=== PATIENT | female | born 1955 | race Caucasian/White ===

== ENCOUNTER 2017-12-26 08:10 | Outpatient (CLI) | payer BC | END 2017-12-26 08:11 | disposition home or self-care (01) | LOC: BICULT 08:10 | PROVIDERS: ATTEND Urology | DX: N39.41 Urge incontinence (principal) | CPT/HCPCS: 76770 ==

== ENCOUNTER 2018-01-14 14:16 | Outpatient (CLI) | payer BC ==
[2018-01-14 15:54] LABS: Hemoglobin 12.9 g/dL (12.0-16.0); Mean Corpuscular HGB CONC 33.6 g/dL (32.0-36.0); Mean Corpuscular Hemoglobin 32.5 pg (27.0-31.0); Mean Corpuscular Volume 96.8 fl (81.0-99.0); Mean Platelet Volume 8.1 fL (7.4-10.4); Platelet Count 248 thou/uL (130-400); RBC Distribution Width 11.6 % (11.5-14.5); Red Blood Cell (RBC) Count 3.96 mill/uL (4.20-5.40)
[2018-01-14 15:59] LABS: Bilirubin Negative (Negative); Blood, Urine Negative (Negative); Clarity CLOUDY (Clear); Glucose, Urine (Dipstick) Negative (Negative); Leukocyte Negative (Negative); Nitrite Negative (Negative); Protein, Urine (Dipstick) Negative (Neg-Trace); Specific Gravity, Urine 1.033 (1.002-1.036); Urobilinogen 0.2 mg/dL (0.2-1.0); pH, Urine 5.5 (5.0-9.0)
[2018-01-14 16:00] LABS: INR-International Normal Ratio 0.9; PTT 27.9 SEC (22.9-36.1); Prothrombin Time 12.6 SEC (12.0-14.7)
[2018-01-14 16:01] LABS: Bacteria/HPF None Seen HPF (None Seen); Hyaline Casts/LPF 0-3 HYALINE CAST LPF (0-3 Hyaline); Pathc Cast-AUWi Flag 0.67 (0-2.49); RBC/HPF 0-3 HPF (0-3); Squamous Epithelial 0-3 HPF (0-3); WBC/HPF 0-3 HPF (0-3)
[2018-01-14 16:13] LABS: Crystals/HPF 4+ CA OXALATE HPF (Negative)
[2018-01-14 16:15] LABS: Anion Gap 15 mmol/L (10-20); BUN (Urea Nitrogen) 24 mg/dL (9.8-20.1); Calc. Creatinine Clearance 0 mL/min (70-130); Carbon Dioxide 26 mmol/L (23-31); Chloride 105 mmol/L (98-107); Estimated GFR-MDRD Greater than 90; Glucose 98 mg/dL (80-115); Potassium 4.1 mmol/L (3.5-5.1); Sodium 142 mmol/L (136-145)
--- NOTE | 2018-01-22 19:50 | EKG ---
Test Reason : Blood Pressure : / mmHG Vent. Rate : 076 BPM Atrial Rate : 076 BPM P-R Int : 156 ms QRS Dur : 066 ms QT Int : 374 ms P-R-T Axes : 085 086 073 degrees QTc Int : 420 ms Normal sinus rhythm Low voltage QRS Septal infarct , age undetermined Abnormal ECG When compared with ECG of 22-NOV-2014 17:03, No significant change was found Confirmed by REBEL EARLY (2) on 01/22/2018 7:50:02 PM Referred By: HALIE Confirmed By:REBEL EARLY
== END 2018-01-14 14:17 | disposition home or self-care (01) ==
LOC: LABBT 14:16
PROVIDERS: ATTEND Urology
DX: Z01.818 Encounter for other preprocedural examination (principal); G35 Multiple sclerosis; N31.9 Neuromuscular dysfunction of bladder, unspecified
CPT/HCPCS: 80048; 81001; 85027; 85610; 85730; 93005; 93010

== ENCOUNTER 2018-01-30 07:25 | Day surgery (SDC) | payer BC ==
[2018-01-14 14:32] VITALS: BMI 18.9
[2018-01-30] MEDS ORDERED: Levofloxacin 500 mg/D5W 100 ml Premix Bag ONE (08:41)
[2018-01-30] MEDS ORDERED: Fentanyl 100 MCG/2 ML VIAL ONE ×2 (10:19)
[2018-01-30] MEDS ORDERED: Phenazopyridine HCl 97.5 MG TABLET ONE (11:29)
--- NOTE | 2018-01-30 13:54 | OP ---
DATE OF PROCEDURE: 01/30/2018 Dr. Nicole [place]. PREOPERATIVE DIAGNOSES: 1. A 62-year-old female with multiple sclerosis, refractory urge incontinence with medical therapy. 2. 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 POSTOPERATIVE DIAGNOSES: 1. A 62-year-old female with multiple sclerosis, refractory urge incontinence with medical therapy. 2. 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 PROCEDURE: Cystoscopy, intravesical Botox injection 100 International Units. SURGEON: Dr. Madeleine Castaneda. ANESTHESIA: LMA. COMPLICATIONS: None apparent. DISPOSITION: To recovery room in stable condition. INDICATIONS FOR THE PROCEDURE AND HISTORY: Ms. Singh is a pleasant 62-year- old female, , with history of multiple sclerosis, followed by an neurologist in [place]. She has a history of refractory urge incontinence, 1 pad per day. She was previously followed by Dr. Steele and has been on multiple anticholinergic medical therapy including VESIcare 5 and 10 mg, Myrbetriq, Toviaz, and Levsin. She is unable to tolerate Myrbetriq due to lower extremity swelling. Due to medical refractory urge incontinence with history of MS, she desires to proceed with Botox. I discussed with patient regarding risks and complications including, but not limited to, bleeding, pain, infection, recurrent UTI, inability for incomplete void requiring clean intermittent catheterization versus indwelling urethral Diaz catheter, possible systemic side effects, exacerbation of muscle weakness, anaphylaxis reviewed. She has undergone workup by a neurologist, who agreed regarding treatment options for Botox and she desires to proceed. As she has significant small capacity bladder , she desired to proceed with first injection under anesthesia. Risks and complications of the procedure are discussed as above. DESCRIPTION OF THE PROCEDURE: After an informed consent is signed, the patient is taken to the operating room, placed in a dorsal lithotomy position with the genital prepped and draped in the usual surgical sterile fashion. Anesthesia was provided. She was provided preoperative antibiotics. A rigid 22-Thai cystoscope was utilized, which demonstrated normal bladder mucosa. The ureteral orifices were identified in normal anatomical location. There was clear influx of urine bilaterally. There was no evidence of bladder tumor or stones. The Botox injection needle was set at 4 mm and 20 injections of 0.5cc placed systematically throughout the bladder to avoid the trigone/ureteral orifices. No significant oozing of concern was noted. The bladder was completely emptied and she tolerated the procedure well. She will follow up with me in 6-week interval to reassess her clinical symptoms. She is discharged with ciprofloxacin for another 1-2 days. We will monitor her postop , check a postvoid residual before discharge. ACACIA
== END 2018-01-30 12:50 | disposition home or self-care (01) ==
LOC: SDC 07:25
PROVIDERS: ATTEND Urology
PROC: 3E0K8GC Introduction of Other Therapeutic Substance into Genitourinary Tract, Via Natural or Artificial Opening Endoscopic (ICD-10-PCS; principal; 2018-01-30)
DX: N39.41 Urge incontinence (principal); N31.9 Neuromuscular dysfunction of bladder, unspecified; G35 Multiple sclerosis; N32.89 Other specified disorders of bladder; K59.00 Constipation, unspecified; Z79.899 Other long term (current) drug therapy; Z88.8 Allergy status to other drugs, medicaments and biological substances
CPT/HCPCS: J0585; J1956; J3010

== ENCOUNTER 2018-05-02 11:44 | Outpatient (CLI) | payer BC ==
[2018-05-02 14:04] LABS: Hemoglobin 12.8 g/dL (12.0-16.0); Mean Corpuscular Hemoglobin 33.3 pg (27.0-31.0); Mean Platelet Volume 8.4 fL (7.4-10.4); Platelet Count 250 thou/uL (130-400); RBC Distribution Width 11.3 % (11.5-14.5); Red Blood Cell (RBC) Count 3.85 mill/uL (4.20-5.40)
[2018-05-02 14:13] LABS: INR-International Normal Ratio 0.9; PTT 28.2 SEC (22.9-36.1); Prothrombin Time 12.6 SEC (12.0-14.7)
[2018-05-02 14:23] LABS: Anion Gap 11 mmol/L (10-20); BUN (Urea Nitrogen) 19 mg/dL (9.8-20.1); Calc. Creatinine Clearance 0 mL/min (70-130); Calcium 9.5 mg/dL (7.8-10.44); Carbon Dioxide 29 mmol/L (23-31); Chloride 102 mmol/L (98-107); Estimated GFR-MDRD Greater than 90; Glucose 77 mg/dL (80-115); Potassium 3.9 mmol/L (3.5-5.1); Sodium 138 mmol/L (136-145)
[2018-05-02 14:36] LABS: Bilirubin Negative (Negative); Blood, Urine Negative (Negative); Clarity CLEAR (Clear); Glucose, Urine (Dipstick) Negative (Negative); Leukocyte Small (Negative); Nitrite Negative (Negative); Protein, Urine (Dipstick) Negative (Neg-Trace); Specific Gravity, Urine 1.017 (1.002-1.036); Urobilinogen 0.2 mg/dL (0.2-1.0)
[2018-05-02 15:06] LABS: Bacteria/HPF None Seen HPF (None Seen); Hyaline Casts/LPF 0-3 HYALINE CAST LPF (0-3 Hyaline); Pathc Cast-AUWi Flag 0.29 (0-2.49); RBC/HPF 0-3 HPF (0-3); Squamous Epithelial 0-3 HPF (0-3); WBC/HPF 0-3 HPF (0-3)
== END 2018-05-02 11:45 | disposition home or self-care (01) ==
LOC: LABBT 11:44
PROVIDERS: ATTEND Urology
DX: Z01.818 Encounter for other preprocedural examination (principal); N31.9 Neuromuscular dysfunction of bladder, unspecified
CPT/HCPCS: 80048; 81001; 85027; 85610; 85730; 87077; 87086; 93005; 93010

== ENCOUNTER 2018-05-15 05:53 | Day surgery (SDC) | payer BC ==
[2018-05-02 12:01] VITALS: BMI 18.6
[2018-05-15] MEDS ORDERED: Levofloxacin 500 mg/D5W 100 ml Premix Bag ONE (06:07)
[2018-05-15] MEDS ORDERED: Phenazopyridine HCl 97.5 MG TABLET ONE (07:59)
--- NOTE | 2018-05-15 08:11 | OP ---
DATE OF SERVICE: 05/15/2018 PREOPERATIVE DIAGNOSES: A 62-year-old female with history of multiple sclerosis, urge incontinence s econdary to neurogenic bladder, detrusor hyperreflexia. POSTOPERATIVE DIAGNOSES: A 62-year-old female with history of multiple sclerosis, urge incontinence secondary to neurogenic bladder, detrusor hyperreflexia. PROCEDURE: Cystoscopy, intravesical Botox injection 100 international units. SURGEON: Madeleine Castaneda D.O. ANESTHESIA: LMA. COMPLICATIONS: None apparent. DISPOSITION: To recovery room in stable condition. INDICATIONS FOR THE PROCEDURE AND HISTORY: Ms. Singh is a 62-year-old female with history of multip le sclerosis with severe urge incontinence. She has had difficulty tolerating Myrbetriq due to lower extremity swelling, also has tried multiple anticholinergics with no significant improvement. She p reviously underwent Botox injection and had subjective improvement of her urge incontinence using 1 p ad per day. She presents today for repeat Botox injection. She has been fully informed regarding ri sks and complications and indications for the procedure and alternative options. DESCRIPTION OF THE PROCEDURE: After an informed consent is signed, the patient is taken to the opera tin room, placed in a dorsal lithotomy position with the genital area prepped and draped in the usua l surgical sterile fashion. Broad-spectrum antibiotics were provided. Bilateral Christina Chinchilla plac ed. A 21-[place] cystoscope was utilized for cystoscopy. There was mild resistance passing a 21 scop e, however, this was able to be passed with no trauma. Bladder was entered which demonstrated no marifer dence of bladder lesion, tumors, stones or trabeculation. We offset the Botox injection needle at 4 mm and we systematically injected 0.5 mL avoiding trigone for a total of 20 injections. Minimal oozi ng from the injection site was noted and she tolerated the procedure well. She will complete a cours e of antibiotics until tomorrow, she will see me in 6 week interval for a postvoid residual check.
[2018-05-15] MEDS ORDERED: PHENYLEPHRINE-NS 100 MCG/ML 10 ML SYRINGE ONE (14:33)
[2018-05-15] MEDS ORDERED: Ondansetron HCl/PF 4 MG/2 ML Vial ONE (14:33)
[2018-05-15] MEDS ORDERED: Dexamethasone 20 MG/5 ML VIAL ONE (14:33)
== END 2018-05-15 10:07 | disposition home or self-care (01) ==
LOC: SDC 05:53
PROVIDERS: ATTEND Urology
PROC: 3E0K8GC Introduction of Other Therapeutic Substance into Genitourinary Tract, Via Natural or Artificial Opening Endoscopic (ICD-10-PCS; principal; 2018-05-15)
DX: N31.9 Neuromuscular dysfunction of bladder, unspecified (principal); N39.41 Urge incontinence; K59.00 Constipation, unspecified; G35 Multiple sclerosis; Z88.8 Allergy status to other drugs, medicaments and biological substances; Z79.899 Other long term (current) drug therapy
CPT/HCPCS: J0585; J1100; J1956; J2405

== ENCOUNTER 2019-09-05 13:49 | Outpatient (CLI) | payer BC ==
[~2019-09-05 13:49] MED LIST: Gadobenate Dimeglumine 529 MG/1 ML (20ML VIAL) ONE
[2019-09-05 15:00] LABS: Estimated GFR-MDRD - POC Greater than 90
--- NOTE | 2019-09-05 16:32 | MRI ---
Exam: MRI thoracic spine with and without contrast. HISTORY: Patient has been diagnosed with multiple sclerosis in 1987 or . Evaluate for demyelinating plaques and assessed the overall degree of cord involvement COMPARISON: None FINDINGS: Appropriate T1 marrow signal intensity of the thoracic vertebra. Thoracic spine vertebral body height is maintained. There is no evidence of fracture. No significant STIR hyperintensity to suggest vertebral body edema or ligamentous injury. Postcontras t images do not demonstrate any abnormal enhancement of the thoracic vertebra. There is rightward curvature of the thoracic spine Mediastinum, lung parenchyma and solid organs are grossly unremarkable. There is a T2 hyperintensity in the liver, corresponding to a cyst which is demonstrated on CT from 12/17/2009 Throughout the thoracic spine, there is no significant central canal stenosis. Neural foramina are pa tent. Conus medullaris terminates at the mid L1 level. The thoracic cord has normal signal intensity. No cord expansion. There are multisegment areas of cor d malacia. There is no cord signal T2 hyperintensity. No evidence of enhancement. No MR evidence of a demyelinating plaque. IMPRESSION: 1. Rightward curvature of the thoracic spine. 2. No evidence of a myelinating plaque in the thoracic spine.. 3. Multisegmental areas of thoracic cord malacia. Transcribed Date/Time: 09/05/2019 4:35 PM
--- NOTE | 2019-09-05 17:03 | MRI ---
MRI Cervical Spine W WO Con History: Multiple sclerosis Comparison: Cervical spine 2015 Findings: Cerebral tonsils terminate at the level of the foramen magnum. No acute fracture. No paraspinal mass. No cervical adenopathy. There is multifocal patchy abnormal increased T2 signal throughout the cervical cord atrophy at the a t the C7/T1 level. Levels are as follows: C2/C3: Mild degenerative disc space height loss. Moderate uncinate process appear atrophied. Moderate facet arthropathy. Mild bilateral neural foraminal narrowing. C3/C4: Circumferential disc osteophyte complex. 2 mm anterolisthesis. Moderate to severe left and mod erate right hypertrophic facet arthropathy. Mild effacement of the ventral CSF space. Mild bilateral neural foraminal narrowing. C4/C5: Circumferential disc bulge. Large right lateral recess and subforaminal disc osteophyte comple x. Mild left and moderate right hypertrophic facet arthropathy. Moderate to severe right and mild left neural foraminal narrowing. C5/C6: Circumferential disc height loss with disc osteophyte complex greatest in the right subforamin al zone. Mild bilateral facet arthropathy. Mild effacement of ventral CSF space. No significant canal narrowing. Mild bilateral neural foraminal narrowing. Moderate bilateral neural foraminal narrowing. C6/C7: Circumferential disc bulge and associated osteophytes. Mild effacement of ventral CSF space wi th the spinal canal measuring 1 cm. No active demyelinating plaque. No abnormal focus of enhancement. Impression: 1. No evidence for active demyelination. 2. Extensive demyelinating plaque throughout the cervical cord with atrophy at the level of C7/T1. 3. Extensive spondylosis as described.
== END 2019-09-05 13:50 | disposition home or self-care (01) ==
LOC: BICMRI 13:49
PROVIDERS: ATTEND Psychiatry & Neurology Neurology
DX: G35 Multiple sclerosis (principal); M47.812 Spondylosis without myelopathy or radiculopathy, cervical region; M43.9 Deforming dorsopathy, unspecified; M83.8 Other adult osteomalacia
CPT/HCPCS: 72156; 72157; 82565; A9577

== ENCOUNTER 2019-09-10 15:20 | Outpatient (CLI) | payer BC ==
--- NOTE | 2019-09-10 16:52 | MRI ---
Exam: Brain MRI with and without contrast HISTORY: Multiple sclerosis COMPARISON: 04/25/2006 FINDINGS: Gradient echo sequence: No hemorrhage Calvarium: Appropriate T1 marrow signal intensity Midline brain parenchyma: Unremarkable Cerebrum:No parenchymal mass, mass effect or midline shift. Brain volume, slightly less than expected for patient's age. Redemonstration of multiple T2 and FLAIR white matter hyperintensities, perpendicular to the ventricular system. 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 There is no as sociated restricted diffusion or enhancement to suggest active demyelination. Ventricles: No evidence of hydrocephalus. Sinuses and mastoid air cells: Adequate aeration Diffusion: Central arterial flow is maintained. Absent restricted diffusion. Postcontrast images: No pathologic enhancement of the brain parenchyma. IMPRESSION: Stable white matter hyperintensities. No evidence of restricted diffusion or enhancement to suggest a ctive demyelination. Transcribed Date/Time: 09/10/2019 4:58 PM
== END 2019-09-10 15:21 | disposition home or self-care (01) ==
LOC: BICMRI 15:20
PROVIDERS: ATTEND Psychiatry & Neurology Neurology
DX: G35 Multiple sclerosis (principal); G93.89 Other specified disorders of brain
CPT/HCPCS: 70553; A9577

== ENCOUNTER 2020-10-15 12:19 | Emergency (ER) | payer BC ==
[2020-10-15] MEDS ORDERED: Boostrix 0.5 ML (Tdap) VIAL ONE (13:47)
[2020-10-15] MEDS ORDERED: Acetaminophen 500 MG TAB ONE (13:47)
--- NOTE | 2020-10-15 14:24 | CT ---
CT BRAIN WITHOUT CONTRAST: COMPARISON: 11/22/2014. HISTORY: Head injury. TECHNIQUE: Multiple contiguous axial images were obtained in a CT of the brain without contrast. FINDINGS: There are a few subtle scattered hypodensities in the subcortical and periventricular white matter, l ikely secondary to small-vessel ischemic disease. No large confluent infarction is seen. There is n o evidence of hydrocephalus, intracranial hemorrhage, or extraaxial fluid collection. There is soft tissue swelling in the right scalp near the vertex. The underlying calvarium is unrema rkable. There may be a small radiopaque foreign body within the soft tissues in this area of swellin g. This radiopaque foreign body was present on the prior CT. The visualized paranasal sinuses and m astoid air cells are well aerated. IMPRESSION: No evidence of acute intracranial abnormality. POS: EAA
--- NOTE | 2020-10-15 14:45 | CT ---
CT CERVICAL SPINE WITHOUT CONTRAST: HISTORY: Head trauma with neck pain. TECHNIQUE: Multiple contiguous axial images were obtained in a CT of the cervical spine without contrast. Sagit lucien and coronal reformats were performed. FINDINGS: Moderate degenerative changes are seen in the cervical spine. The vertebral bodies demonstrate niurka l height and alignment without acute fracture or subluxation. No prevertebral soft tissue swelling i s seen. The posterior facets are well aligned. Normal alignment of the skull base with the cervical spine is seen. IMPRESSION: Moderate degenerative changes of the cervical spine without acute osseous abnormality. POS: EAA
== END 2020-10-15 16:00 | disposition home or self-care (01) ==
LOC: ERS 12:19
DX: S06.0X0A Concussion without loss of consciousness, initial encounter (principal); S01.01XA Laceration without foreign body of scalp, initial encounter; Z23 Encounter for immunization; W01.10XA Fall on same level from slipping, tripping and stumbling with subsequent striking against unspecified object, initial encounter
CPT/HCPCS: 12002; 70450; 72125; 90471; 90715

== ENCOUNTER 2020-10-26 09:32 | Emergency (ER) | payer BC | END 2020-10-26 10:19 | disposition home or self-care (01) | LOC: ERS 09:32 | DX: S01.01XD Laceration without foreign body of scalp, subsequent encounter (principal); W01.198D Fall on same level from slipping, tripping and stumbling with subsequent striking against other object, subsequent encounter ==

== ENCOUNTER 2022-09-29 08:13 | Inpatient (IN) | payer BC ==
[2022-09-29 09:57] LABS: ALT (SGPT) 12 U/L (8-55); AST (SGOT) 17 U/L (5-34); Albumin 4.3 g/dL (3.4-4.8); Alkaline Phosphatase 75 U/L (40-110); Anion Gap 17 mmol/L (10-20); BUN (Urea Nitrogen) 19 mg/dL (9.8-20.1); Bilirubin, Total 1.5 mg/dL (0.2-1.2); Calc. Creatinine Clearance 0 mL/min (70-130); Calcium 9.5 mg/dL (7.8-10.44); Carbon Dioxide 24 mmol/L (23-31); Chloride 103 mmol/L (98-107); Estimated GFR 99; Glucose 98 mg/dL (80-115); Magnesium 1.7 mg/dL (1.6-2.6); Potassium 3.9 mmol/L (3.5-5.1); Protein, Total 7.3 g/dL (5.8-8.1); Sodium 140 mmol/L (136-145)
[2022-09-29 10:07] LABS: Hemoglobin 12.7 g/dL (12.0-16.0); Mean Corpuscular HGB CONC 32.5 g/dL (32.0-36.0); Mean Corpuscular Hemoglobin 34.4 pg (27.0-31.0); Mean Platelet Volume 8.4 fL (7.4-10.4); Platelet Count 271 10x3/uL (130-400); RBC Distribution Width 11.7 % (11.5-14.5); White Blood Cell (WBC) Count 13.1 10x3/uL (4.8-10.8)
[2022-09-29] MEDS ORDERED: methylPREDNISolone Sod Succ 1 GM in Sodium Chloride 0.9% 250 ML 250 ML IVPB SCH (11:00)
[2022-09-29 11:01] LABS: #Lymphocytes 1.2 thou/uL (1.20-3.40); #Neutrophils 10.9 thou/uL (1.40-6.50); %Basophils 0.1 % (0.0-1.0); %Eosinophils 0.2 % (0.0-10.0); %Lymphocytes 9.3 % (21.0-51.0); %Monocytes 7.3 % (0.0-10.0); %Neutrophils 83.2 % (42.0-75.0); MDiff Complete? YES; Microcytosis MODERATE=15-30 cells (100X) (0-5/hpf); Platelet Morphology Comment Appears Adequate
[2022-09-29 11:35] LABS: Bilirubin Negative (Negative); Blood, Urine Negative (Negative); Clarity Clear (Clear); Glucose, Urine (Dipstick) Normal (Negative); Ketone, Urine 100 mg/dL (Negative); Leukocyte Negative Leu/uL (Negative); Nitrite Negative (Negative); Protein, Urine (Dipstick) 10 mg/dL (Neg-Trace); Specific Gravity, Urine 1.027 (1.002-1.036); pH, Urine 6.5 (5.0-9.0)
[2022-09-29] MEDS ORDERED: Midazolam HCl 2 mg/2 ml Vial ONE (12:01)
[2022-09-29] MEDS ORDERED: Ondansetron ODT 4 MG TAB PO PRN (12:16)
[2022-09-29] MEDS ORDERED: Senokot S 8.6-50 MG TAB PO PRN (12:16)
[2022-09-29] MEDS ORDERED: Acetaminophen 325 MG TAB PO PRN (12:16)
[2022-09-29] MEDS ORDERED: Ondansetron PF 4 MG/2 ML Vial IVP PRN (12:16)
[2022-09-29] MEDS: Sodium Chloride 0.9% 1,000 ML IV SCH (14:51)
[2022-09-29] MEDS: Baclofen 10 MG TAB PO SCH ×2 (14:52→20:10)
[2022-09-29 19:39] LABS: SARS-CoV-2 NAA Rapid Test Not Detected (NotDetected)
[2022-09-30] MEDS: Sodium Chloride 0.9% 1,000 ML IV SCH (04:27)
[2022-09-30 07:23] LABS: #Lymphocytes 1.2 thou/uL (1.20-3.40); #Monocytes 1.1 thou/uL (0.11-0.59); #Neutrophils 13.8 thou/uL (1.40-6.50); %Basophils 0.1 % (0.0-1.0); %Eosinophils 0.2 % (0.0-10.0); %Lymphocytes 7.3 % (21.0-51.0); %Monocytes 6.9 % (0.0-10.0); %Neutrophils 85.5 % (42.0-75.0); Hemoglobin 11.1 g/dL (12.0-16.0); Mean Corpuscular HGB CONC 31.7 g/dL (32.0-36.0); Mean Corpuscular Hemoglobin 33.8 pg (27.0-31.0); Mean Platelet Volume 8.6 fL (7.4-10.4); Platelet Count 258 10x3/uL (130-400); RBC Distribution Width 11.9 % (11.5-14.5); Red Blood Cell (RBC) Count 3.28 mill/uL (4.20-5.40); White Blood Cell (WBC) Count 16.1 10x3/uL (4.8-10.8)
[2022-09-30 07:41] LABS: Anion Gap 11 mmol/L (10-20); BUN (Urea Nitrogen) 15 mg/dL (9.8-20.1); Calc. Creatinine Clearance 71 mL/min (70-130); Calcium 8.8 mg/dL (7.8-10.44); Carbon Dioxide 22 mmol/L (23-31); Chloride 111 mmol/L (98-107); Estimated GFR 101; Glucose 100 mg/dL (80-115); Potassium 4.2 mmol/L (3.5-5.1); Sodium 140 mmol/L (136-145)
[2022-09-30] MEDS ORDERED: methylPREDNISolone Sod Succ 40 MG VIAL IVP SCH (09:00)
[2022-09-30] MEDS ORDERED: FLU VACC QS2022-23(65YR UP)/PF 240 MCG/0.7 ML SYRINGE IM ONE (09:00)
[2022-09-30] MEDS: Baclofen 10 MG TAB PO SCH ×3 (09:50→20:36)
[2022-09-30] MEDS: methylPREDNISolone Sod Succ 1 GM in Sodium Chloride 0.9% 100 ML IVPB SCH (10:22)
[2022-09-30 15:45] VITALS: BMI 17.3
[2022-10-01 09:05] LABS: Chloride 108 mmol/L (98-107); Potassium 4.2 mmol/L (3.5-5.1)
[2022-10-01 09:06] LABS: Calcium 9.1 mg/dL (7.8-10.44); Glucose 95 mg/dL (80-115); Sodium 139 mmol/L (136-145)
[2022-10-01 09:08] LABS: Anion Gap 17 mmol/L (10-20); Carbon Dioxide 18 mmol/L (23-31)
[2022-10-01 09:10] LABS: Calc. Creatinine Clearance 69 mL/min (70-130); Estimated GFR 101
[2022-10-01 09:11] LABS: BUN (Urea Nitrogen) 20 mg/dL (9.8-20.1)
[2022-10-01] MEDS: Baclofen 10 MG TAB PO SCH ×3 (09:33→20:39)
[2022-10-01] MEDS: methylPREDNISolone Sod Succ 1 GM in Sodium Chloride 0.9% 100 ML IVPB SCH (09:33)
[2022-10-01 10:22] LABS: Hemoglobin 12.1 g/dL (12.0-16.0); Mean Corpuscular HGB CONC 33.1 g/dL (32.0-36.0); Mean Corpuscular Hemoglobin 35.1 pg (27.0-31.0); Mean Platelet Volume 8.9 fL (7.4-10.4); Platelet Count 265 10x3/uL (130-400); RBC Distribution Width 11.8 % (11.5-14.5); Red Blood Cell (RBC) Count 3.46 mill/uL (4.20-5.40); White Blood Cell (WBC) Count 17.9 10x3/uL (4.8-10.8)
[2022-10-01 11:36] LABS: Band 3 % (5-11); Lymphocytes 3 % (21-51); MDiff Complete? YES; Macrocytosis MODERATE=16-30 cells (100X) (0-5/hpf); Monocytes 6 % (0-10); Neutrophil 88 % (42-75); Platelet Morphology Comment Appears Adequate
[2022-10-01] MEDS ORDERED: Magnevist 469MG/ML 20 ML VIAL ONE (14:01)
[2022-10-01] MEDS: NALTREXONE 4 MG PO SCH (20:37)
[2022-10-02] MEDS: Baclofen 10 MG TAB PO SCH ×3 (09:13→20:19)
[2022-10-02] MEDS: methylPREDNISolone Sod Succ 1 GM in Sodium Chloride 0.9% 250 ML 250 ML IVPB SCH (10:40)
[2022-10-02] MEDS: NALTREXONE 4 MG PO SCH (20:19)
[2022-10-03] MEDS: methylPREDNISolone Sod Succ 1 GM in Sodium Chloride 0.9% 250 ML 250 ML IVPB SCH (08:58)
[2022-10-03] MEDS: Baclofen 10 MG TAB PO SCH ×3 (08:58→21:07)
[2022-10-03] MEDS: NALTREXONE 4 MG PO SCH (21:08)
[2022-10-04] MEDS: Baclofen 10 MG TAB PO SCH ×2 (08:51→14:40)
[2022-10-04] MEDS: methylPREDNISolone Sod Succ 1 GM in Sodium Chloride 0.9% 250 ML 250 ML IVPB SCH (08:51)
[2022-10-04 19:29] VITALS: BP 131/79; TEMP 98
== END 2022-10-04 20:02 | DRG 59 ==
LOC: ERS 08:13 → T4-A 11:59 → OBSVTOIN 09-30 13:56
PROVIDERS: ADMIT Internal Medicine; ATTEND Internal Medicine
DX: G35 Multiple sclerosis (principal); Z68.1 Body mass index [BMI] 19.9 or less, adult; Z20.822 Contact with and (suspected) exposure to COVID-19; G25.0 Essential tremor; Z60.2 Problems related to living alone; R79.89 Other specified abnormal findings of blood chemistry; M24.575 Contracture, left foot; M24.574 Contracture, right foot; M24.542 Contracture, left hand; M24.541 Contracture, right hand; R63.6 Underweight; Z28.21 Immunization not carried out because of patient refusal; Z88.8 Allergy status to other drugs, medicaments and biological substances; Z79.899 Other long term (current) drug therapy; Z98.890 Other specified postprocedural states
CPT/HCPCS: 36415; 70553; 71045; 80048; 80053; 81003; 83735; 84443; 84484; 85025; 93005; 96365; 96375; 96376; A9579; G0378; J2250; J2930; J3490; J7050

== ENCOUNTER 2023-05-15 08:45 | Outpatient (CLI) | payer BC | END 2023-05-15 08:46 | disposition home or self-care (01) | LOC: PET 08:45 | PROVIDERS: ATTEND Internal Medicine | DX: R19.04 Left lower quadrant abdominal swelling, mass and lump (principal) | CPT/HCPCS: 78815; A9552 ==

== ENCOUNTER 2023-08-13 11:29 | Outpatient (CLI) | payer BC ==
[2023-08-13 12:54] LABS: Bilirubin Neg (Negative); Blood, Urine Negative (Negative); Clarity Clear (Clear); Glucose, Urine (Dipstick) Normal (Negative); Ketone, Urine Negative (Negative); Leukocyte Negative (Negative); Nitrite Negative (Negative); Protein, Urine (Dipstick) Negative (Neg-Trace); Urobilinogen Normal mg/dL (Less than 2)
[2023-08-13 13:06] LABS: Hematocrit 31.6 % (34.9-44.5); Hemoglobin 9.9 g/dL (12.0-15.5); Mean Corpuscular HGB CONC 31.3 g/dL (32.0-36.0); Mean Corpuscular Hemoglobin 26.1 pg (27.0-33.0); Mean Corpuscular Volume 83.4 fl (81.6-98.3); Mean Platelet Volume 10.5 fl (7.4-10.4); Platelet Count 362 10x3/uL (150-450); RBC Distribution Width 14.8 % (11.5-14.5); Red Blood Cell (RBC) Count 3.79 10x6/uL (3.90-5.03); White Blood Cell (WBC) Count 6.9 10x3/uL (3.5-10.5)
[2023-08-13 13:18] LABS: INR-International Normal Ratio 0.9; PTT 26.1 sec (22.0-33.0)
[2023-08-13 13:19] LABS: Anion Gap 18 mmol/L (10-20); BUN (Urea Nitrogen) 23 mg/dL (9.8-20.1); Calc. Creatinine Clearance 0 mL/min (70-130); Calcium 9.2 mg/dL (7.8-10.44); Carbon Dioxide 24 mmol/L (23-31); Chloride 102 mmol/L (98-107); Estimated GFR 95; Glucose 96 mg/dL (80-115); Potassium 4.5 mmol/L (3.5-5.1); Sodium 139 mmol/L (136-145)
[2023-08-13 13:26] LABS: Bacteria/HPF None Seen HPF (None Seen); RBC/HPF None Seen HPF (0-3); Squamous Epithelial 0-3 HPF (0-3); WBC/HPF None Seen HPF (0-3)
== END 2023-08-13 11:30 | disposition home or self-care (01) ==
LOC: LABBT 11:29
PROVIDERS: ATTEND Urology
DX: Z01.818 Encounter for other preprocedural examination (principal); G35 Multiple sclerosis; N39.41 Urge incontinence; K59.00 Constipation, unspecified; K76.9 Liver disease, unspecified
CPT/HCPCS: 71046; 80048; 81001; 85027; 85610; 85730; 87086; 93005; 93010

== ENCOUNTER 2023-08-24 06:49 | Day surgery (SDC) | payer BC ==
[2023-08-13 12:07] VITALS: BMI 18.2
[2023-08-24] MEDS ORDERED: Sodium Chloride 0.9% 100 ML ONE (07:38)
[2023-08-24] MEDS ORDERED: Lidocaine 1% MPF 2 ML VIAL ONE (07:38)
[2023-08-24] MEDS ORDERED: CEFAZOLIN 1 GM VIAL ONE (07:38)
[2023-08-24 09:15] LABS: Hemoglobin 8.4 g/dL (12.0-16.0)
[2023-08-24] MEDS ORDERED: Famotidine/PF 20 mg/2ml Vial ONE (09:44)
[2023-08-24] MEDS ORDERED: SUGAMMADEX SODIUM 200 MG/2 ML VIAL ONE (09:44)
[2023-08-24] MEDS ORDERED: fentaNYL PF 100 MCG/2 ML SYRINGE ONE (09:44)
[2023-08-24] MEDS ORDERED: EPINEPHrine 1 MG/ML AMP ONE (09:45)
[2023-08-24] MEDS ORDERED: Vancomycin 1 GM VIAL ONE (09:45)
[2023-08-24] MEDS ORDERED: Bupivacaine 0.25% HCL 30 ML VIAL ONE (09:45)
[2023-08-24] MEDS ORDERED: Dexamethasone 20 MG/5 ML VIAL ONE (10:01)
[2023-08-24] MEDS ORDERED: PROPOFOL 200 MG/20 ML VIAL ONE (10:01)
[2023-08-24] MEDS ORDERED: Rocuronium Bromide 10 MG/ML (10ML VIAL) ONE (10:01)
[2023-08-24] MEDS ORDERED: PHENYLEPHRINE-NS 100 MCG/ML 10 ML SYRINGE ONE (10:01)
[2023-08-24] MEDS ORDERED: Lidocaine 1% PF 5 ML VIAL ONE (10:01)
[2023-08-24] MEDS ORDERED: ePHEDrine Sulfate 50 MG/10 ML VIAL ONE (10:01)
[2023-08-24] MEDS ORDERED: Ondansetron PF 4 MG/2 ML Vial ONE (10:01)
== END 2023-08-24 13:24 | disposition home or self-care (01) ==
LOC: SDC 06:49
PROVIDERS: ATTEND Urology
PROC: 01HY3MZ Insertion of Neurostimulator Lead into Peripheral Nerve, Percutaneous Approach (ICD-10-PCS; principal; 2023-08-24)
DX: N32.81 Overactive bladder (principal); G35 Multiple sclerosis
CPT/HCPCS: 36415; 72220; 85014; 85018; C1897; J0171; J0690; J1100; J2405; J2704; J3370; J3490; S0020; S0028

== ENCOUNTER 2023-08-30 10:36 | Day surgery (SDC) | payer BC ==
[2023-08-29 11:31] VITALS: BMI 18.2
[2023-08-30 12:23] LABS: ALT (SGPT) 15 U/L (8-55); AST (SGOT) 14 U/L (5-34); Albumin 4.4 g/dL (3.4-4.8); Alkaline Phosphatase 80 U/L (40-110); Anion Gap 12 mmol/L (10-20); BUN (Urea Nitrogen) 19 mg/dL (9.8-20.1); Bilirubin, Total 0.4 mg/dL (0.2-1.2); Calc. Creatinine Clearance 61 mL/min (70-130); Calcium 9.2 mg/dL (7.8-10.44); Carbon Dioxide 27 mmol/L (23-31); Chloride 107 mmol/L (98-107); Estimated GFR 96; Glucose 87 mg/dL (80-115); Potassium 3.8 mmol/L (3.5-5.1); Protein, Total 6.4 g/dL (5.8-8.1); Sodium 142 mmol/L (136-145)
[2023-08-30] MEDS ORDERED: Vancomycin 1 GM VIAL ONE (13:52)
[2023-08-30] MEDS ORDERED: Bupivacaine 0.25% HCL 30 ML VIAL ONE (13:52)
[2023-08-30] MEDS ORDERED: SUGAMMADEX SODIUM 200 MG/2 ML VIAL ONE (14:01)
[2023-08-30] MEDS ORDERED: fentaNYL PF 100 MCG/2 ML SYRINGE ONE (14:01)
[2023-08-30] MEDS ORDERED: CEFAZOLIN 1 GM VIAL ONE (14:06)
[2023-08-30] MEDS ORDERED: Sodium Chloride 0.9% 100 ML ONE (14:06)
[2023-08-30] MEDS ORDERED: Rocuronium Bromide 10 MG/ML (10ML VIAL) ONE (14:22)
[2023-08-30] MEDS ORDERED: PHENYLEPHRINE-NS 100 MCG/ML 10 ML SYRINGE ONE (14:22)
[2023-08-30] MEDS ORDERED: Ondansetron PF 4 MG/2 ML Vial ONE (14:22)
[2023-08-30] MEDS ORDERED: PROPOFOL 200 MG/20 ML VIAL ONE (14:22)
[2023-08-30] MEDS ORDERED: ePHEDrine Sulfate 50 MG/10 ML VIAL ONE (14:22)
[2023-08-30] MEDS ORDERED: Lidocaine 1% PF 5 ML VIAL ONE (14:22)
== END 2023-08-30 16:30 | disposition home or self-care (01) ==
LOC: SDC 10:36
PROVIDERS: ATTEND Urology
PROC: 0JH60BZ Insertion of Single Array Stimulator Generator into Chest Subcutaneous Tissue and Fascia, Open Approach (ICD-10-PCS; principal; 2023-08-30)
DX: N39.41 Urge incontinence (principal); N32.81 Overactive bladder; Z88.1 Allergy status to other antibiotic agents
CPT/HCPCS: 80053; C1713; C1787; J0690; J2405; J2704; J3370; J3490; S0020